=== PATIENT | female | born 1995 | race African-American/Black ===

== ENCOUNTER 2016-12-15 12:13 | Emergency (ER) | payer MEDICAID, OTHER ==
[~2016-12-15] VITALS: Ht 149.9 cm; Wt 63.5 kg
[~2016-12-15 12:13] MED LIST: ANTI-ITCH28 G1 TP; CIPROFLOXACIN500 M2 ORAL; IBUPROFEN600 MG ORAL; KEFLEX500 MG ORAL; NKM; PHENAZOPYRIDIN100 MG ORAL
[2016-12-15 12:40] LABS: APPEARANCE,URINE CLEAR; KETONES,URINE NEGATIVE (NEGATIVE); LEUKOCYTE ESTERASE ,URINE 1+ (NEGATIVE); NITRITE,URINE NEGATIVE (NEGATIVE); PH,URINE 7 (4.5-8.0); PROTEIN,URINE NEGATIVE (NEGATIVE); UROBILINOGEN,URINE NORMAL MG/DL (0.0-1.0)
[2016-12-15 12:57] LABS: BACTERIA,URINE FEW /HPF; RBC,URINE 0-2 /HPF (0 - 2); SQUAMOUS EPITHELIAL CELL,UR FEW /LPF (NONE/OCC)
[2016-12-15 13:01] VITALS: BP 122/82
[2016-12-15] MEDS ORDERED: METRONIDAZOLE500 MG ORAL (13:09)
[2016-12-15 13:19] VITALS: BP 122/82
--- NOTE | 2016-12-15 13:24 | Emergency Room Report ---
History of Present Illness General Chief Complaint: Back Pain-No Injury Source: Patient Present Illness HPI The patient is a 21-year-old female presenting for increased vaginal discharge, vaginal odor, and intermittent dysuria for the past 2 weeks. Patient states pain is a 6/10 dull ache to the vaginal region. She denies any itching. Pain does not radiate. She denies any other symptoms including nausea, vomiting, fever, chills, flank pain, hematuria Allergies: Coded Allergies: No Known Allergies (Unverified , 11/23/12) Patient History Past Medical History: see triage record Pertinent Family History: none Last Menstrual Period: 11/11/16 Now: No Reviewed Nursing Documentation: PMH: Agreed, PSxH: Agreed Nursing Documentation-PMH Past Medical History: No Stated History Review of Systems All Other Systems: negative except mentioned in HPI Physical Exam Vital Signs Date Time Temp Pulse Resp B/P Pulse Ox O2 Delivery O2 Flow Rate FiO2 12/15/16 12:20 98.2 69 18 122/82 100 Room Air Sp02 EP Interpretation: reviewed, normal General Appearance: no apparent distress, alert, GCS 15, non-toxic Head: normocephalic, atraumatic Eyes: bilateral eye PERRL, bilateral eye normal inspection ENT: hearing grossly normal, normal pharynx, no angioedema, normal voice Gastrointestinal: normal bowel sounds, non tender, soft, non-distended, no guarding, no rebound Rectal: deferred Musculoskeletal: back normal, gait/station normal, normal range of motion, non- tender, calf tenderness Neurologic: alert, oriented x3, responsive, motor strength/tone normal, sensory intact, speech normal Psychiatric: judgement/insight normal, memory normal, mood/affect normal, no suicidal/homicidal ideation Skin: normal color, no rash, warm/dry, well hydrated Medical Decision Making PA Attestation Dr. Sutton is my supervising physician. Patient management was discussed with my supervising physician Diagnostic Impression: Primary Impression: Bacterial vaginosis ER Course The patient is a 21-year-old female presenting for increased vaginal discharge, vaginal odor, and intermittent dysuria Differential diagnosis considered but not limited to: UTI, vaginitis, pyelonephritis, PE: Vitals WNL. NAD. Abdomen: Normal appearance. Non distended. No ecchymosis. Normal BS. Non TTP. No McBurney point tenderness. No guarding. No CVA tenderness Surgical scar from is well-healing Urinalysis is not consistent with UTI. She'll be treated for bacterial vaginosis. ER precautions are given Laboratory Tests Test 12/15/16 12:25 Urine Color Pale yellow Urine Appearance Clear Urine pH 7 (4.5-8.0) Urine Specific [place] 1.010 (1.005-1.035) Urine Protein Negative (NEGATIVE) Urine Glucose (UA) Negative (NEGATIVE) Urine Ketones Negative (NEGATIVE) Urine Occult Blood Negative (NEGATIVE) Urine Nitrite Negative (NEGATIVE) Urine Bilirubin Negative (NEGATIVE) Urine Urobilinogen Normal MG/DL (0.0-1.0) Urine Leukocyte Esterase 1+ (NEGATIVE) H Urine RBC 0-2 /HPF (0 - 2) Urine WBC 2-4 /HPF (0 - 2) Urine Squamous Epithelial Cells Few /LPF (NONE/OCC) Urine Bacteria Few /HPF (NONE) Urine HCG, Qualitative Negative Lab Results Impression No nitrites. Only few urine bacteria. Last Vital Signs Date Time Temp Pulse Resp B/P Pulse Ox O2 Delivery O2 Flow Rate FiO2 12/15/16 13:01 98.2 69 18 122/82 100 Room Air Status: improved Disposition: HOME, SELF-CARE Condition: Improved Scripts Metronidazole* (FLAGYL*) 500 Mg Tablet 500 MG ORAL BID, #14 TAB 0 Refills Prov: TAYLOR BERGER 12/15/16 Patient Instructions: Bacterial Vaginosis Additional Instructions: I discussed my findings with the patient. All questions and concerns have been answered. Treatment and medication compliance have been addressed. I advised the patient that they need to follow up with PMD in 3-5 days. Return to ED if symptoms worsen, new symptoms arise, or if needed for any reason. Patient verbalized understanding of discharge instructions. TAYLOR BERGER December 15, 2016 13:24
== END 2016-12-15 13:20 | disposition home or self-care (01) ==
LOC: EMR 13:05
DX: N76.0 Acute vaginitis (principal); B96.89 Other specified bacterial agents as the cause of diseases classified elsewhere
CPT/HCPCS: 81003; 81025; 99283

== ENCOUNTER 2017-05-09 21:25 | Emergency (ER) | payer OTHER ==
[~2017-05-09] VITALS: Ht 149.9 cm; Wt 63.5 kg
[~2017-05-09 21:25] MED LIST changes: +METRONIDAZOLE500 MG ORAL
[2017-05-09 21:52] VITALS: BP 122/77
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
[2017-05-09] MEDS ORDERED: IBUPROFEN600 MG ORAL (22:27)
[2017-05-09 22:31] VITALS: BP 122/77
--- NOTE | 2017-05-10 09:27 | Diagnostic Imaging Report ---
Indication: TRAUMA, status post fall Technique: Continuous helical CT scanning of the head was performed without intravenous contrast material. Axial and coronal 5 mm sections were generated. Radiation dose was minimized using automated exposure control Dose: Total Dose Length Product - DLP [address] Dose Index - CTDIvol(s) 70.38 mGy. Comparison: None Findings: The ventricular system is normal in size and configuration. There is no shift of midline structures. No abnormal extra-axial fluid collections are noted. There is no evidence of intracerebral bleeding. No other abnormal high or low density areas are noted within the brain. Intact calvarium. Visualized orbits and sinuses are unremarkable Impression: Normal CT scan of the head without contrast material. The CT scanner at [facility] is accredited by the [employer] and the scans are performed using protocols designed to limit radiation exposure to as low as reasonably achievable to attain images of sufficient resolution adequate for diagnostic evaluation.
== END 2017-05-09 22:32 | disposition home or self-care (01) ==
LOC: EMR 22:10
DX: S09.90XA Unspecified injury of head, initial encounter (principal); T16.1XXA Foreign body in right ear, initial encounter; X58.XXXA Exposure to other specified factors, initial encounter; Y93.9 Activity, unspecified; Y99.9 Unspecified external cause status; R51 Headache
CPT/HCPCS: 70450; 99283

== ENCOUNTER 2017-10-22 10:51 | Emergency (ER) | payer OTHER ==
[~2017-10-22] VITALS: Ht 149.9 cm; Wt 63.5 kg
[2017-10-22 11:24] VITALS: BP 121/70
[2017-10-22] MEDS ORDERED: Acetaminophen 500mg (ES) tab ORAL ONE (11:30)
[2017-10-22 12:37] LABS: APPEARANCE,URINE CLEAR; BILIRUBIN, URINE NEGATIVE (NEGATIVE); COLOR,URINE PALE YELLOW; GLUCOSE, URINE (UA) NEGATIVE (NEGATIVE); KETONES,URINE NEGATIVE (NEGATIVE); LEUKOCYTE ESTERASE ,URINE 2+ (NEGATIVE); NITRITE,URINE NEGATIVE (NEGATIVE); PH,URINE 7 (4.5-8.0); PROTEIN,URINE NEGATIVE (NEGATIVE); UROBILINOGEN,URINE NORMAL MG/DL (0.0-1.0)
[2017-10-22] MEDS ORDERED: metroNIDAZOLE 500mg tab ORAL ONE (13:45)
--- NOTE | 2017-10-22 13:51 | Emergency Room Report ---
History of Present Illness General Chief Complaint: Back Pain-No Injury Source: Patient Present Illness HPI Patient presents with lower back pain and dysuria. She also has a vaginal discharge which she states is white. The pain is 8/10, constant and an ache, not in her abdomen. No NVD or change in bowel movements. No fevers. No flank pain. No rashes. She has an implant which makes her periods irregular. She wants this removed. She has had vaginitis and UTIs in the past. Last was several months ago. Treated with antibiotics. She is in a stable relationship. No barrier methods used. Urinates most of the time after intercourse. No URI, chest pain, cough, sore throat, extremity pain. Stress with raising son. Allergies: Coded Allergies: No Known Allergies (Unverified , 11/23/12) Patient History Past Medical History: see triage record Social History: Denies: smoking Social History Narrative with son Last Menstrual Period: sep Reviewed Nursing Documentation: PMH: Agreed, PSxH: Agreed Nursing Documentation-PMH Past Medical History: No Stated History Review of Systems All Other Systems: negative except mentioned in HPI Physical Exam Vital Signs Date Time Temp Pulse Resp B/P (MAP) Pulse Ox O2 Delivery O2 Flow Rate FiO2 10/22/17 11:04 98.1 93 16 121/73 99 Room Air 98.1 Sp02 EP Interpretation: reviewed, normal General Appearance: well appearing, no apparent distress, GCS 15 Head: normocephalic Eyes: bilateral eye normal inspection, bilateral eye PERRL ENT: moist mucus membranes Neck: supple Respiratory: lungs clear, normal breath sounds Cardiovascular #1: regular rate, rhythm Cardiovascular #2: 2+ radial (R) Gastrointestinal: normal inspection, normal bowel sounds, non tender, no mass, non-distended Genitourinary: no CVA tenderness, adnexa normal, cervix normal, ext genitalia/ vag normal, os closed, uterus normal, other - yellowish/white d/c Musculoskeletal: back normal, gait/station normal, normal range of motion Neurologic: alert, oriented x3, grossly normal Psychiatric: mood/affect normal Skin: normal inspection, warm/dry Medical Decision Making Diagnostic Impression: Primary Impression: Bacterial vaginosis Additional Impression: UTI (urinary tract infection) Qualified Codes: N30.00 - Acute cystitis without hematuria ER Course Patient with back pain, dysuria and vaginal d/c. DDx: UTI, PID, vaginitis, back strain, pyelonephritis. Latter unlikely as no fever or CVA tenderness. Based on exam, PID excluded. Need UA and also wet mount. Treated with tylenol. UA with pyuria. WM with clue cells. Treated with macrobid and flagyl. Improved. Patient stable for outpatient observation and treatment. Laboratory Tests Test 10/22/17 11:10 Urine Color Pale yellow Urine Appearance Clear Urine pH 7 (4.5-8.0) Urine Specific [place] 1.010 (1.005-1.035) Urine Protein Negative (NEGATIVE) Urine Glucose (UA) Negative (NEGATIVE) Urine Ketones Negative (NEGATIVE) Urine Occult Blood Negative (NEGATIVE) Urine Nitrite Negative (NEGATIVE) Urine Bilirubin Negative (NEGATIVE) Urine Urobilinogen Normal MG/DL (0.0-1.0) Urine Leukocyte Esterase 2+ (NEGATIVE) H Urine RBC 0-2 /HPF (0 - 2) Urine WBC 10-15 /HPF (0 - 2) H Urine Squamous Epithelial Cells Few /LPF (NONE/OCC) Urine Bacteria Few /HPF (NONE) Urine HCG, Qualitative Negative Microbiology Date/Time Source Procedure Growth Status 10/22/17 12:30 Vaginal Wet Prep - Final Complete Last Vital Signs Date Time Temp Pulse Resp B/P (MAP) Pulse Ox O2 Delivery O2 Flow Rate FiO2 10/22/17 14:15 98.3 77 16 121/70 98 Room Air 208.9 Status: improved Disposition: HOME, SELF-CARE Condition: Improved Scripts Acetaminophen (Tylenol) 325 Mg Tablet 650 MG ORAL Q6H Y for Prn Pain/Headache/Temp > 101, #30 TAB 0 Refills Prov: Дмитрий Cummins M.D. 10/22/17 Nitrofurantoin Monohyd/M-Cryst* (MACROBID 100 MG*) 100 Mg Capsule 100 MG ORAL EVERY 12 HOURS, #14 CAP Prov: Дмитрий Cummins M.D. 10/22/17 Ibuprofen* (MOTRIN*) 600 Mg Tablet 600 MG ORAL Q6H Y for For Pain, #20 TAB Prov: Дмитрий Cummins M.D. 10/22/17 Metronidazole* (FLAGYL*) 500 Mg Tablet 500 MG ORAL TID, #21 TAB Prov: Дмитрий Cummins M.D. 10/22/17 Referrals: [facility],REFERRING (PCP) Дмитрий Cummins M.D. Oct 22, 2017 13:51
[2017-10-22] MEDS ORDERED: METRONIDAZOLE500 MG ORAL (13:55)
[2017-10-22] MEDS ORDERED: NITROFURANTOIN100 M2 ORAL (13:55)
[2017-10-22] MEDS ORDERED: IBUPROFEN600 MG ORAL (13:55)
[2017-10-22] MEDS ORDERED: TYLENOL325 MG ORAL (13:55)
[2017-10-22 14:15] VITALS: BP_SYST 103; BP_SYST 121; BP_DIAS 65; BP_DIAS 70
[2017-10-25] MEDS ORDERED: AUGMENTIN 875-1 EAC1 ORAL (07:03)
== END 2017-10-22 14:15 | disposition home or self-care (01) ==
LOC: EMR 11:39
DX: N30.00 Acute cystitis without hematuria (principal); N76.0 Acute vaginitis
CPT/HCPCS: 81003; 81025; 87086; 87181; 87210; 99284

== ENCOUNTER 2017-12-14 08:48 | Emergency (ER) | payer OTHER ==
[~2017-12-14] VITALS: Ht 149.9 cm; Wt 63.5 kg
[~2017-12-14 08:48] MED LIST changes: +AUGMENTIN 875-1 EAC1 ORAL; +NITROFURANTOIN100 M2 ORAL; +TYLENOL325 MG ORAL
[2017-12-14] MEDS ORDERED: NKM (08:56)
[2017-12-14] MEDS ORDERED: Norco 5mg/325mg tab ORAL ONE (09:00)
--- NOTE | 2017-12-14 09:02 | Emergency Room Report ---
History of Present Illness General Chief Complaint: Pain Source: Patient Present Illness HPI Patient presents emergency department today complaining of right wrist pain. Patient states that she develops mild right wrist pain yesterday and then progressively became worse to the point now it's worse when she tries to move it. She denies any trauma chest pain shortness of breath. States that she did not have any recent injury. Denies any heavy lifting or repetitive movements. The pain is concentrated to the risks and nonradiating. The pain is worse with movement. There is some mild swelling around the area of the wrist as well. Patient denies any other involvement of any other joints. Patient denies any vaginal discharge dysuria urinary frequency or prior episode.No other modifying factors. No other associated signs and symptoms. No other complaints were noted. Allergies: Coded Allergies: No Known Allergies (Unverified , 11/23/12) Patient History Past Medical History: none Past Surgical History: none Pertinent Family History: none Social History: Denies: smoking, alcohol use, drug use Last Menstrual Period: 12/06/17 Reviewed Nursing Documentation: PMH: Agreed; PSxH: Agreed Nursing Documentation-PMH Past Medical History: No Stated History Review of Systems All Other Systems: negative except mentioned in HPI Physical Exam Vital Signs Date Time Temp Pulse Resp B/P (MAP) Pulse Ox O2 Delivery O2 Flow Rate FiO2 12/14/17 08:54 97.5 84 16 114/74 100 Room Air 97.5 Sp02 EP Interpretation: reviewed, normal General Appearance: normal inspection, well appearing, no apparent distress, alert Head: atraumatic Eyes: bilateral eye normal inspection ENT: normal ENT inspection, hearing grossly normal, normal voice Neck: normal inspection, full range of motion, supple, no bony tend Respiratory: normal inspection, lungs clear, normal breath sounds, no respiratory distress, no retraction, no wheezing Cardiovascular #1: regular rate, rhythm, no edema Gastrointestinal: normal inspection, normal bowel sounds, non tender, soft, no guarding, no hernia Genitourinary: no CVA tenderness Musculoskeletal: decreased range of motion - Right wrist, swelling - Right wrist mild, tender - Right wrist Neurologic: normal inspection, alert, responsive, speech normal Psychiatric: normal inspection, judgement/insight normal, mood/affect normal Skin: normal inspection, normal color, no rash Procedures Splinting Splinting : Consent: Verbal Location: Right wrist Pre-Made Type: velcro Splint: wrist Pre-Proc Neuro Vasc Exam: normal Post-Proc Neuro Vasc Exam: normal Patient Tolerated: Well Complications: None Medical Decision Making Diagnostic Impression: Primary Impression: Gout attack Additional Impression: Wrist pain ER Course Patient presents emergency department today complaining of right wrist pain. Differential considerations cofactors dislocation versus strain versus arthritis versus gout. Because patient's presentation x-rays are indicated. X- rays were negative. I felt the symptoms are likely consistent with gallops or strain. Patient was given pain medications and a Velcro a splint.Patient is advised to follow up with primary doctor in 2-3 days and return the emergency room for any worsening symptoms and as needed. Other X-Ray Diagnostic Results Other X-Ray Diagnostic Results : X-Ray ordered: Right wrist x-ray # of Views/Limited Vs Complete: 3 View Indication: Pain EP Interpretation: Yes Interpretation: no dislocation, no soft tissue swelling, no fractures Impression: No acute disease Electronically Signed by: Electronically signed by Nia Corbett MD Last Vital Signs Date Time Temp Pulse Resp B/P (MAP) Pulse Ox O2 Delivery O2 Flow Rate FiO2 12/14/17 08:54 97.5 84 16 114/74 100 Room Air 97.5 Status: improved Disposition: HOME, SELF-CARE Condition: Stable Scripts Indomethacin (Indomethacin) 50 Mg Capsule 25 MG ORAL Q8H for pain, #15 CAP 0 Refills Prov: NIA CORBETT M.D. 12/14/17 Hydrocodone Bit/Acetaminophen 5-325* (NORCO 5-325*) 1 Each Tablet 1 TAB ORAL Q6H PRN for For Pain, #20 TAB 0 Refills Prov: NIA CORBETT M.D. 12/14/17 NIA CORBETT M.D. December 14, 2017 09:02
[2017-12-14] MEDS ORDERED: INDOCIN25 MG ORAL (10:15)
[2017-12-14] MEDS ORDERED: NORCO 5-325 TA1 EACH ORAL (10:15)
[2017-12-14 10:20] VITALS: BP 99/68
--- NOTE | 2017-12-14 11:03 | Diagnostic Imaging Report ---
Indication: Pain Technique: XRAY Wrist Complete R Comparison: None Findings: There is no evidence of acute fracture or dislocation. Anatomic alignment and joint spaces are preserved. No focal soft tissue defect is appreciated. No radiopaque foreign body seen. Impression: No evidence of acute bony articular abnormality.
== END 2017-12-14 10:20 | disposition home or self-care (01) ==
LOC: EMR 09:11
DX: M10.9 Gout, unspecified (principal)
CPT/HCPCS: 29125; 99284

== ENCOUNTER 2018-02-14 09:52 | Emergency (ER) | payer OTHER ==
[~2018-02-14] VITALS: Ht 152.4 cm; Wt 64.4 kg
[~2018-02-14 09:52] MED LIST changes: +INDOCIN25 MG ORAL; +NORCO 5-325 TA1 EACH ORAL
[2018-02-14] MEDS ORDERED: Sodium Chloride 500ML 500 ML IV ONE (10:20)
[2018-02-14 10:30] VITALS: BP 114/75
[2018-02-14] MEDS ORDERED: Mylanta II UD 30ml ORAL ONE (10:30)
[2018-02-14] MEDS ORDERED: Dicyclomine HCl 10mg/5ml oral soln ORAL ONE (10:30)
[2018-02-14] MEDS ORDERED: Lidocaine 2% Visc 15ml soln ORAL ONE (10:30)
[2018-02-14 10:50] LABS: BASOPHILS % (AUTO) 0.9 % (0.0-2.0); EOSINOPHILS % (AUTO) 0.2 % (0.0-3.0); HEMATOCRIT 42.2 % (37.0-47.0); HEMOGLOBIN 14.1 G/DL (12.0-16.0); LYMPHOCYTES % (AUTO) 18.9 % (20.0-45.0); MEAN CORPUSCULAR VOLUME 90 FL (80-99); MONOCYTES % (AUTO) 4.3 % (1.0-10.0); NEUTROPHILS % (AUTO) 75.8 % (45.0-75.0); PLATELET COUNT 272 K/UL (150-450); RED BLOOD COUNT 4.71 M/UL (4.20-5.40); RED CELL DISTRIBUTION WIDTH 11.4 % (11.6-14.8); WHITE BLOOD COUNT 14.1 K/UL (4.8-10.8)
[2018-02-14 10:51] LABS: APPEARANCE,URINE SLIGHTLY CLOUDY; BILIRUBIN, URINE NEGATIVE (NEGATIVE); GLUCOSE, URINE (UA) NEGATIVE (NEGATIVE); KETONES,URINE NEGATIVE (NEGATIVE); LEUKOCYTE ESTERASE ,URINE 1+ (NEGATIVE); NITRITE,URINE NEGATIVE (NEGATIVE); PH,URINE 6 (4.5-8.0); PROTEIN,URINE 1+ (NEGATIVE); UROBILINOGEN,URINE 1 MG/DL (0.0-1.0)
[2018-02-14 10:56] LABS: COLOR,URINE YELLOW
[2018-02-14 10:58] LABS: ANION GAP 8 mmol/L (5-15); BLOOD UREA NITROGEN 9 mg/dL (7-18); CALCIUM 9.5 MG/DL (8.5-10.1); CARBON DIOXIDE 27 MMOL/L (21-32); CHLORIDE 103 MMOL/L (98-107); CREATININE 0.8 MG/DL (0.55-1.30); POTASSIUM 3.6 MMOL/L (3.5-5.1); SODIUM 138 MMOL/L (136-145)
[2018-02-14 11:03] LABS: ALANINE AMINOTRANSFERASE 21 U/L (12-78); ALBUMIN 3.8 G/DL (3.4-5.0); ALBUMIN/GLOBULIN RATIO 0.8 (1.0-2.7); ALKALINE PHOSPHATASE 86 U/L (46-116); ASPARTATE AMINO TRANSFERASE 16 U/L (15-37); BILIRUBIN,TOTAL 0.2 MG/DL (0.2-1.0)
[2018-02-14] MEDS ORDERED: cefTRIAXone 1 GM in NS 55 ML IVPB ONE (11:15)
[2018-02-14] MEDS ORDERED: CEPHALEXIN500 MG ORAL (12:32)
[2018-02-14] MEDS ORDERED: RANITIDINE HCL150 MG ORAL (12:32)
[2018-02-14 13:00] VITALS: BP 114/75
--- NOTE | 2018-02-14 14:21 | Emergency Room Report ---
History of Present Illness General Chief Complaint: Abdominal Pain Source: Patient Present Illness HPI 22-year-old female presents ED complaining of abdominal pain. Started last night. Patient is epigastric, sharp, 8 out of 10, nonradiating. Notes nausea, denies vomiting. Denies chest pain or shortness of breath. Denies fevers or chills. No other aggravating relieving factors. Denies any other associated symptoms Allergies: Coded Allergies: No Known Allergies (Unverified , 11/23/12) Patient History Past Medical History: none Past Surgical History: none Pertinent Family History: none Social History: Denies: smoking, alcohol use, drug use Last Menstrual Period: 01/29/18 Now: No Immunizations: UTD Reviewed Nursing Documentation: PMH: Agreed; PSxH: Agreed Nursing Documentation-PMH Past Medical History: No Stated History Review of Systems All Other Systems: negative except mentioned in HPI Physical Exam Vital Signs Date Time Temp Pulse Resp B/P (MAP) Pulse Ox O2 Delivery O2 Flow Rate FiO2 02/14/18 10:09 98.5 99 16 114/75 97 Room Air 98.4 Sp02 EP Interpretation: reviewed, normal General Appearance: no apparent distress, alert, GCS 15, non-toxic Head: normocephalic, atraumatic Eyes: bilateral eye normal inspection, bilateral eye PERRL ENT: hearing grossly normal, normal pharynx, no angioedema, normal voice Neck: full range of motion, supple/symm/no masses Respiratory: chest non-tender, lungs clear, normal breath sounds, speaking full sentences Cardiovascular #1: regular rate, rhythm, no edema Cardiovascular #2: 2+ carotid (R), 2+ carotid (L), 2+ radial (R), 2+ radial (L) , 2+ dorsalis pedis (R), 2+ dorsalis pedis (L) Gastrointestinal: normal bowel sounds, soft, non-distended, no guarding, no rebound, tenderness - epigastric Rectal: deferred Genitourinary: normal inspection, no CVA tenderness Musculoskeletal: back normal, gait/station normal, normal range of motion, non- tender Neurologic: alert, oriented x3, responsive, motor strength/tone normal, sensory intact, speech normal Psychiatric: judgement/insight normal, memory normal, mood/affect normal, no suicidal/homicidal ideation Reflexes: 3+ bicep (R), 3+ bicep (L), 3+ tricep (R), 3+ tricep (L), 3+ knee (R) , 3+ knee (L) Skin: normal color, no rash, warm/dry, well hydrated Lymphatic: no adenopathy Medical Decision Making Diagnostic Impression: Primary Impression: Gastritis Qualified Codes: K29.00 - Acute gastritis without bleeding Additional Impression: UTI ER Course Hospital Course 22-year-old F presents to ED with epigastric pain with nausea differential diagnosis: gastritis, SBO, cholecystits Clinical course Patient placed on stretcher. On ekg monitor. After initial history and physical I ordered labs, IV fluids, gi cocktail, pepcid Labs - noted leukocytosis, no electrolyte abnormalities, LFTs normal, UA + bacteria Given IV rocephin Upon reassessment, patient states pain has improved. findings consistent with gastritis, UTI I feel this is a highly complex case requiring extensive working including EKG/ Rhythm strip, Xray/CT/US, Blood/urine lab work, repeat exams while in ED, and administration of strong opiates/narcotics for pain control, admission to hospital or close patient follow up. Diagnosis - gastritis, UTI Stable and discharged to home with prescriptions for Zantac, keflex. Followup with PMD. Return to ED if symptoms recur or worsen Labs Test 02/14/18 10:19 02/14/18 10:30 Urine Color Yellow Urine Appearance Slightly cloudy Urine pH 6 (4.5-8.0) Urine Specific [place] 1.020 (1.005-1.035) Urine Protein 1+ (NEGATIVE) Urine Glucose (UA) Negative (NEGATIVE) Urine Ketones Negative (NEGATIVE) Urine Occult Blood 1+ (NEGATIVE) Urine Nitrite Negative (NEGATIVE) Urine Bilirubin Negative (NEGATIVE) Urine Urobilinogen 1 MG/DL (0.0-1.0) Urine Leukocyte Esterase 1+ (NEGATIVE) Urine RBC 2-4 /HPF (0 - 2) Urine WBC 5-10 /HPF (0 - 2) Urine Squamous Epithelial Cells Many /LPF (NONE/OCC) Urine Bacteria Moderate /HPF (NONE) Urine HCG, Qualitative Negative (NEGATIVE) White Blood Count 14.1 K/UL (4.8-10.8) Red Blood Count 4.71 M/UL (4.20-5.40) Hemoglobin 14.1 G/DL (12.0-16.0) Hematocrit 42.2 % (37.0-47.0) Mean Corpuscular Volume 90 FL (80-99) Mean Corpuscular Hemoglobin 29.9 PG (27.0-31.0) Mean Corpuscular Hemoglobin Concent 33.4 G/DL (32.0-36.0) Red Cell Distribution Width 11.4 % (11.6-14.8) Platelet Count 272 K/UL (150-450) Mean Platelet Volume 7.2 FL (6.5-10.1) Neutrophils (%) (Auto) 75.8 % (45.0-75.0) Lymphocytes (%) (Auto) 18.9 % (20.0-45.0) Monocytes (%) (Auto) 4.3 % (1.0-10.0) Eosinophils (%) (Auto) 0.2 % (0.0-3.0) Basophils (%) (Auto) 0.9 % (0.0-2.0) Sodium Level 138 MMOL/L (136-145) Potassium Level 3.6 MMOL/L (3.5-5.1) Chloride Level 103 MMOL/L (98-107) Carbon Dioxide Level 27 MMOL/L (21-32) Anion Gap 8 mmol/L (5-15) Blood Urea Nitrogen 9 mg/dL (7-18) Creatinine 0.8 MG/DL (0.55-1.30) Estimat Glomerular Filtration Rate > 60 mL/min (>60) Glucose Level 91 MG/DL (74-106) Calcium Level 9.5 MG/DL (8.5-10.1) Total Bilirubin 0.2 MG/DL (0.2-1.0) Aspartate Amino Transf (AST/SGOT) 16 U/L (15-37) Alanine Aminotransferase (ALT/SGPT) 21 U/L (12-78) Alkaline Phosphatase 86 U/L (46-116) Total Protein 8.8 G/DL (6.4-8.2) Albumin 3.8 G/DL (3.4-5.0) Globulin 5.0 g/dL Albumin/Globulin Ratio 0.8 (1.0-2.7) Lipase 136 U/L (73-393) Last Vital Signs Date Time Temp Pulse Resp B/P (MAP) Pulse Ox O2 Delivery O2 Flow Rate FiO2 7/5/18 10:30 98.4 16 114/75 97 Room Air 98.4 02/14/18 10:09 99 Status: improved Disposition: HOME, SELF-CARE Condition: Stable Scripts Ranitidine Hcl* (ZANTAC*) 150 Mg Tablet 150 MG ORAL TWICE A DAY, #30 TAB Prov: Dre Marvin MD 02/14/18 Cephalexin* (KEFLEX*) 500 Mg Capsule 500 MG ORAL EVERY 6 HOURS, #28 CAP Prov: Dre Marvin MD 02/14/18 Patient Instructions: Dysuria, Gastritis, Adult, [id number] Dre Marvin MD Feb 14, 2018 14:21
== END 2018-02-14 13:00 | disposition home or self-care (01) ==
LOC: EMR 10:40
DX: K29.70 Gastritis, unspecified, without bleeding (principal); N39.0 Urinary tract infection, site not specified
CPT/HCPCS: 36415; 80053; 81003; 81025; 83690; 85025; 87086; 87181; 96365; 96375; 99284; J0696; J7040; S0028; 96360; 96374

== ENCOUNTER 2018-04-03 05:34 | Emergency (ER) | payer OTHER ==
[~2018-04-03] VITALS: Ht 152.4 cm; Wt 61.2 kg
[~2018-04-03 05:34] MED LIST changes: +CEPHALEXIN500 MG ORAL; +RANITIDINE HCL150 MG ORAL
[2018-04-03 05:50] VITALS: BP 110/66
[2018-04-03] MEDS ORDERED: IBUPROFEN600 MG ORAL (05:50)
--- NOTE | 2018-04-03 05:51 | Emergency Room Report ---
History of Present Illness General Chief Complaint: Upper Extremity Injury Source: Patient Present Illness HPI Is a 23-year-old female who is right-hand dominant. She is a student and has repetitive motion of her wrist. She presents with chief complaint of right wrist pain underneath the thumb. Onset for the last few days. Worse with motion. Worse with palpation. No fever chills but no trauma. Similar symptom in the past. Denies any trauma. Pain is 8 out of 10. Allergies: Coded Allergies: No Known Allergies (Unverified , 11/23/12) Patient History Past Medical History: none, see triage record, old chart reviewed Past Surgical History: none Pertinent Family History: none Social History: Denies: smoking Last Menstrual Period: mar Now: No Immunizations: other Reviewed Nursing Documentation: PMH: Agreed; PSxH: Agreed Nursing Documentation-PMH Past Medical History: No Stated History Review of Systems Eye: Denies: eye pain, blurred vision ENT: Denies: ear pain, nose congestion, throat swelling Respiratory: Denies: cough, shortness of breath Cardiovascular: Denies: chest pain, palpitations Gastrointestinal: Denies: abdominal pain, diarrhea, nausea, vomiting Musculoskeletal: Reports: joint pain; Denies: back pain Skin: Denies: rash Neurological: Denies: headache, numbness Endocrine: Denies: increased thirst, increased urine Hematologic/Lymphatic: Denies: easy bruising All Other Systems: negative except mentioned in HPI Physical Exam Vital Signs Date Time Temp Pulse Resp B/P (MAP) Pulse Ox O2 Delivery O2 Flow Rate FiO2 04/03/18 05:37 97.9 85 18 110/66 100 Room Air 97.9 vitals normal Sp02 EP Interpretation: reviewed, normal General Appearance: well appearing, no apparent distress, alert Head: normocephalic, atraumatic Eyes: bilateral eye PERRL, bilateral eye EOMI ENT: hearing grossly normal, normal pharynx Neck: full range of motion, supple, no meningismus Respiratory: chest non-tender, lungs clear, normal breath sounds Cardiovascular #1: regular rate, rhythm, no murmur Gastrointestinal: normal bowel sounds, non tender, no mass, no organomegaly, no bruit, non-distended Musculoskeletal: back normal, gait/station normal, normal range of motion, tender - At the base of the thumb near the radial styloid. No warmth or edema. No redness. Pulses normal. Neurologic: alert, oriented x3 Psychiatric: mood/affect normal Skin: warm/dry Procedures Splinting Splinting : Consent: Verbal Location: right thumb Pre-Made Type: velcro Splint: thumb spica Pre-Proc Neuro Vasc Exam: normal Post-Proc Neuro Vasc Exam: normal Patient Tolerated: Well Complications: None Medical Decision Making Diagnostic Impression: Primary Impression: Tendinitis, de Quervain's ER Course Patient presents with right wrist pain. This consistent with de Quervain's tendinitis. No evidence of septic joint. No evidence of gout. We'll discharge home with anti-inflammatory. We'll also put her in a thumb spica splint. Last Vital Signs Date Time Temp Pulse Resp B/P (MAP) Pulse Ox O2 Delivery O2 Flow Rate FiO2 04/03/18 05:37 97.9 85 18 110/66 100 Room Air 97.9 Status: unchanged Disposition: HOME, SELF-CARE Condition: Stable Scripts Ibuprofen* (MOTRIN*) 600 Mg Tablet 600 MG ORAL THREE TIMES A DAY, #30 TAB 0 Refills Prov: KATHY BREWSTER M.D. 04/03/18 Additional Instructions: Rest. Elevate wrist. Ice pack to the area. Decrease activity. Return for increasing pain or any concern. Follow-up your doctor in a week. KATHY BREWSTER M.D. Apr 03, 2018 05:51
[2018-04-03 06:03] VITALS: BP 110/66
== END 2018-04-03 06:05 | disposition home or self-care (01) ==
LOC: EMR 05:48
DX: M65.4 Radial styloid tenosynovitis [de Quervain] (principal)
CPT/HCPCS: 29130; 99283

== ENCOUNTER 2018-09-12 13:26 | Emergency (ER) | payer OTHER ==
[~2018-09-12] VITALS: Ht 152.4 cm; Wt 63.5 kg
[~2018-09-12 13:26] MED LIST changes: +TYLENOL EXTRA500 MG ORAL
--- NOTE | 2018-09-12 13:49 | Emergency Room Report ---
History of Present Illness General Chief Complaint: Female Urogenital Problems Source: Patient Present Illness HPI 23-year-old female presents to the emergency department complaining of 7 out of 10 in severity dysuria, urinary frequency, urgency and low back pain 3 days. Patient reports her symptoms have been progressive. Patient reports frequent UTIs. Patient denies suspicion for she denies lower abdominal pain/ tenderness, nausea, vomiting, fevers or chills. Denies rashes or external genital lesions. Denies aggravating or relieving factors. Allergies: Coded Allergies: No Known Allergies (Unverified , 11/23/12) Patient History Past Medical History: see triage record Past Surgical History: none Pertinent Family History: none Now: No Reviewed Nursing Documentation: PMH: Agreed; PSxH: Agreed Nursing Documentation-PMH Past Medical History: No Stated History Review of Systems All Other Systems: negative except mentioned in HPI Physical Exam Vital Signs Date Time Temp Pulse Resp B/P (MAP) Pulse Ox O2 Delivery O2 Flow Rate FiO2 09/12/18 13:40 98.4 73 19 107/61 99 Room Air Sp02 EP Interpretation: reviewed, normal General Appearance: no apparent distress, alert, GCS 15, non-toxic Head: normocephalic, atraumatic Eyes: bilateral eye normal inspection, bilateral eye PERRL ENT: hearing grossly normal, normal voice Neck: full range of motion Respiratory: chest non-tender, lungs clear, normal breath sounds, speaking full sentences Cardiovascular #1: regular rate, rhythm Gastrointestinal: normal bowel sounds, non tender, soft, non-distended, no guarding Rectal: deferred Genitourinary: normal inspection, no CVA tenderness Musculoskeletal: back normal, gait/station normal, normal range of motion, non- tender Neurologic: alert, oriented x3, responsive, motor strength/tone normal, sensory intact, normal gait, speech normal, grossly normal Psychiatric: judgement/insight normal Skin: normal color, no rash, warm/dry, well hydrated Medical Decision Making PA Attestation Dr. Colbert is my supervising physician whom pt. management has been discussed with. Diagnostic Impression: Primary Impression: UTI (urinary tract infection) Qualified Codes: N30.01 - Acute cystitis with hematuria ER Course 23-year-old female presents to the emergency department complaining of 7 out of 10 in severity dysuria, urinary frequency, urgency and low back pain 3 days. Patient reports her symptoms have been progressive. Patient reports frequent UTIs. Patient denies suspicion for she denies lower abdominal pain/ tenderness, nausea, vomiting, fevers or chills. Denies rashes or external genital lesions. Denies aggravating or relieving factors. Ddx considered but are not limited to UTi , Pyelo, STI, Stone, Cystitis Vital signs: are WNL, pt. is afebrile H&PE are most consistent with UTI ORDERS: - UA labs are attached --Positive for UTI -Urine HCG: Negative ED INTERVENTIONS: -Pyridium PO DISCHARGE: At this time pt. is stable for d/c to home. Will provide printed patient care instructions, and any necessary prescriptions. Care plan and follow up instructions have been discussed with the patient prior to discharge. Labs Test 09/12/18 13:35 Urine Color Pale yellow Urine Appearance Slightly cloudy Urine pH 6 (4.5-8.0) Urine Specific [place] 1.020 (1.005-1.035) Urine Protein 1+ (NEGATIVE) Urine Glucose (UA) Negative (NEGATIVE) Urine Ketones Negative (NEGATIVE) Urine Blood 1+ (NEGATIVE) Urine Nitrite Positive (NEGATIVE) Urine Bilirubin Negative (NEGATIVE) Urine Urobilinogen Normal MG/DL (0.0-1.0) Urine Leukocyte Esterase 3+ (NEGATIVE) Urine RBC 0-2 /HPF (0 - 2) Urine WBC 5-10 /HPF (0 - 2) Urine Squamous Epithelial Cells Few /LPF (NONE/OCC) Urine Bacteria Many /HPF (NONE) Urine HCG, Qualitative Negative (NEGATIVE) Last Vital Signs Date Time Temp Pulse Resp B/P (MAP) Pulse Ox O2 Delivery O2 Flow Rate FiO2 09/12/18 13:40 98.4 73 19 107/61 99 Room Air Disposition: HOME, SELF-CARE Condition: Stable Scripts Nitrofurantoin Monohyd/M-Cryst* (MACROBID 100 MG*) 100 Mg Capsule 100 MG ORAL EVERY 12 HOURS for 5 Days, #10 CAP Prov: Bhavna Mcbride 09/12/18 Patient Instructions: Urinary Tract Infection Bhavna Mcbride Sep 12, 2018 13:49
[2018-09-12] MEDS ORDERED: Phenazopyridine 200mg tab ORAL ONE (14:00)
--- NOTE | 2018-09-12 14:00 | NUR ---
ED Nurse Note:urine sent to labs
[2018-09-12 14:09] LABS: APPEARANCE,URINE SLIGHTLY CLOUDY; BILIRUBIN, URINE NEGATIVE (NEGATIVE); COLOR,URINE PALE YELLOW; GLUCOSE, URINE (UA) NEGATIVE (NEGATIVE); KETONES,URINE NEGATIVE (NEGATIVE); LEUKOCYTE ESTERASE ,URINE 3+ (NEGATIVE); NITRITE,URINE POSITIVE (NEGATIVE); PH,URINE 6 (4.5-8.0); PROTEIN,URINE 1+ (NEGATIVE); UROBILINOGEN,URINE NORMAL MG/DL (0.0-1.0)
[2018-09-12 14:10] VITALS: BP 107/61
[2018-09-12] MEDS ORDERED: NITROFURANTOIN100 M2 ORAL (14:32)
[2018-09-12 14:45] VITALS: BP 111/62
--- NOTE | 2018-09-12 14:45 | NUR ---
ED Nurse Note: Patient is being discharged from ED alert and oriented x4, ambulatory with a steady gait, VSS. patient acknowledged the need to follow up with a week if symptoms dont improve, ID band removed and prescriptions given to patient
== END 2018-09-12 14:49 | disposition home or self-care (01) ==
LOC: EMR 13:45
DX: N39.0 Urinary tract infection, site not specified (principal)
CPT/HCPCS: 81003; 81025; 87086; 87181; 99283

== ENCOUNTER 2018-09-17 03:31 | Emergency (ER) | payer OTHER ==
[~2018-09-17] VITALS: Ht 152.4 cm; Wt 63.5 kg
[2018-09-17] MEDS ORDERED: Ketorolac 60mg Inj IM ONE (04:00)
--- NOTE | 2018-09-17 04:00 | NUR ---
ED Nurse Note: RECIEVED PT ON [place], FROM HOME, AWAKE, ALERT AND ORIENTED X 4, PT HERE WITH C/O SEVERRE, SUDDEN RIGHT LATERAL PAIN AT 10/10, PT IS CURRENTLY BEING TREATED FOR UTI, DAY 4 OF MACROBID, STATES DYSURIA IS BETTER BUT WAS AWAKENED WITH SEVERE PAIN, PT IS CRYING AND GUARDING SITE, ALSO C/O NAUSEA, NO VOMITING, FEVERS, INJURY OR ANY OTHER COMPLAITNS OR DISCOMFORTS, URINE SAMPLE COLLECTED AND SENT, WILL RESUME CARE ORDERED AND CONTINUE TO CLOSELY MONITOR.
--- NOTE | 2018-09-17 04:04 | Emergency Room Report ---
History of Present Illness General Chief Complaint: Lower Back Pain or Injury Source: Patient Present Illness HPI Is a 23-year-old female with no past medical history. She presents with chief complaint of low back pain. Onset was around midnight. Pain is localized to the right lower back. No radiation. Worse with movement. Pain is 9 out of 10. She has a history of back pain before but never this severe. No incontinence of bowel or urine. No numbness. No fever. She was here 4 days ago for UTI. She was prescribed Macrobid. Urine culture grew out Escherichia coli which is pansensitive. Allergies: Coded Allergies: No Known Allergies (Unverified , 11/23/12) Patient History Past Medical History: see triage record, old chart reviewed Past Surgical History: none Pertinent Family History: none Social History: Denies: smoking Last Menstrual Period: aug Now: No : 2 Para: 1 Immunizations: other Reviewed Nursing Documentation: PMH: Agreed; PSxH: Agreed Nursing Documentation-PMH Past Medical History: No Stated History Review of Systems Eye: Denies: eye pain, blurred vision ENT: Denies: ear pain, nose congestion, throat swelling Respiratory: Denies: cough, shortness of breath Cardiovascular: Denies: chest pain, palpitations Gastrointestinal: Denies: abdominal pain, diarrhea, nausea, vomiting Musculoskeletal: Reports: back pain; Denies: joint pain Skin: Denies: rash Neurological: Denies: headache, numbness Endocrine: Denies: increased thirst, increased urine Hematologic/Lymphatic: Denies: easy bruising All Other Systems: negative except mentioned in HPI Physical Exam Vital Signs Date Time Temp Pulse Resp B/P (MAP) Pulse Ox O2 Delivery O2 Flow Rate FiO2 09/17/18 03:34 98.2 86 14 128/94 99 Room Air vitals normal Sp02 EP Interpretation: reviewed, normal General Appearance: well appearing, no apparent distress, alert Head: normocephalic, atraumatic Eyes: bilateral eye PERRL, bilateral eye EOMI ENT: hearing grossly normal, normal pharynx Neck: full range of motion, supple, no meningismus Respiratory: chest non-tender, lungs clear, normal breath sounds Cardiovascular #1: regular rate, rhythm, no murmur Gastrointestinal: normal bowel sounds, non tender, no mass, no organomegaly, no bruit, non-distended Musculoskeletal: back normal, gait/station normal, normal range of motion Psychiatric: mood/affect normal Skin: warm/dry Medical Decision Making Diagnostic Impression: Primary Impression: UTI (urinary tract infection) Qualified Codes: N30.00 - Acute cystitis without hematuria ER Course Patient presents with right flank pain. She still has evidence of UTI. This may be an ascending UTI versus early pyelonephritis. She grew out Escherichia coli that is pansensitive. We'll switch antibiotic class. A dose of Levaquin given here. Pain is better controlled. We'll discharge home. Last Vital Signs Date Time Temp Pulse Resp B/P (MAP) Pulse Ox O2 Delivery O2 Flow Rate FiO2 09/17/18 03:34 98.2 86 14 128/94 99 Room Air Status: improved Disposition: HOME, SELF-CARE Condition: Stable Scripts Levofloxacin (LEVOFLOXACIN*) 500 Mg Tablet 500 MG ORAL DAILY, #6 TAB Prov: Favio Anaya MD 09/17/18 Hydrocodone/Acetaminophen 5-325* (HYDROCODONE/ACETAMINOPHEN 5-325*) 1 Each Tablet 1 TAB ORAL Q6H PRN for For Pain, #15 TAB 0 Refills Prov: Favio Anaya MD 09/17/18 Referrals: [facility],REFERRING (PCP) Patient Instructions: Back Pain, Adult Additional Instructions: Stop Macrobid. Take new antibiotics. Follow-up with your doctor in 2-3 days for recheck. Return if worse. Favio Anaya MD Sep 17, 2018 04:04
[2018-09-17 04:39] LABS: BILIRUBIN, URINE NEGATIVE (NEGATIVE); GLUCOSE, URINE (UA) NEGATIVE (NEGATIVE); KETONES,URINE NEGATIVE (NEGATIVE); LEUKOCYTE ESTERASE ,URINE 2+ (NEGATIVE); NITRITE,URINE NEGATIVE (NEGATIVE); PH,URINE 6 (4.5-8.0); PROTEIN,URINE 2+ (NEGATIVE); UROBILINOGEN,URINE NORMAL MG/DL (0.0-1.0)
[2018-09-17 04:47] LABS: APPEARANCE,URINE CLOUDY; COLOR,URINE YELLOW
[2018-09-17] MEDS ORDERED: Levofloxacin 500mg tab ORAL ONE (05:00)
[2018-09-17] MEDS ORDERED: HYDROCODON-ACE1 EA15 ORAL (05:01)
[2018-09-17] MEDS ORDERED: LEVOFLOXACIN500 MG ORAL (05:01)
[2018-09-17 05:20] VITALS: BP 122/81
--- NOTE | 2018-09-17 05:30 | NUR ---
ED Nurse Note: pain meds given effective, pt staes pain at 2/10, nausea resolved, no s/s of adverse reaction noted from oral antibiotic, pt tolerated well, pt is being d/c to home, given f/u info, after care instructions and re-verbalizes proper and new medication administration and importance of f/u, pt is ambulatory, armband removed, nad noted during d/c to home.
[2018-09-17 05:38] VITALS: BP 122/81
== END 2018-09-17 05:39 | disposition home or self-care (01) ==
LOC: EMR 03:58
DX: N39.0 Urinary tract infection, site not specified (principal)
CPT/HCPCS: 81003; 81025; 87086; 96372; 99283

== ENCOUNTER 2019-01-25 01:08 | Emergency (ER) | payer OTHER ==
[~2019-01-25] VITALS: Ht 154.9 cm; Wt 63.5 kg
[~2019-01-25 01:08] MED LIST changes: +HYDROCODON-ACE1 EA15 ORAL; +LEVOFLOXACIN500 MG ORAL
[2019-01-25 01:48] VITALS: BP 118/70
--- NOTE | 2019-01-25 01:50 | NUR ---
ED Nurse Note: pt walked in c/o low back pain x2days, pt denies any recent injuries but states she thinks it might be her kidney, pt states she has pain and discomfort when urinating. pt ambulates w/ steady gait, vss, will cont monitor.
[2019-01-25] MEDS ORDERED: Ketorolac 60mg Inj IM ONE (02:15)
--- NOTE | 2019-01-25 02:20 | NUR ---
ED Nurse Note: urine specimen sent to lab.
[2019-01-25 02:32] LABS: APPEARANCE,URINE SLIGHTLY CLOUDY; BILIRUBIN, URINE NEGATIVE (NEGATIVE); COLOR,URINE PALE YELLOW; GLUCOSE, URINE (UA) NEGATIVE (NEGATIVE); KETONES,URINE NEGATIVE (NEGATIVE); LEUKOCYTE ESTERASE ,URINE 2+ (NEGATIVE); NITRITE,URINE NEGATIVE (NEGATIVE); PH,URINE 6.5 (4.5-8.0); PROTEIN,URINE 1+ (NEGATIVE); UROBILINOGEN,URINE 1 MG/DL (0.0-1.0)
--- NOTE | 2019-01-25 02:43 | NUR ---
ED Nurse Note: pt reports pain is better with medication, will cont monitor, pt advised to notify staff if needed assist.
[2019-01-25] MEDS ORDERED: Cephalexin 500mg cap ONE (02:57)
[2019-01-25] MEDS ORDERED: Cephalexin 500mg cap ORAL ONE (03:00)
--- NOTE | 2019-01-25 03:01 | Emergency Room Report ---
History of Present Illness General Chief Complaint: Lower Back Pain or Injury Source: Patient, Medical Record Present Illness HPI This is a 23-year-old female with no past medical history. She presents with chief complaint of lower back pain. Onset for 2 days. No trauma. No fever chills but no nausea no vomiting. No incontinence of bowel or urine. Worse with certain movement. She also has some suprapubic tenderness. Does have increasing urination. History of UTI in the past. No upper back pain or vomiting. No fever. Allergies: Coded Allergies: No Known Allergies (Unverified , 01/25/19) Patient History Past Medical History: see triage record, old chart reviewed Past Surgical History: none Pertinent Family History: none Social History: Denies: smoking Last Menstrual Period: 12-30-2018 Now: No Immunizations: other Reviewed Nursing Documentation: PMH: Agreed; PSxH: Agreed Review of Systems Eye: Denies: eye pain, blurred vision ENT: Denies: ear pain, nose congestion, throat swelling Respiratory: Denies: cough, shortness of breath Cardiovascular: Denies: chest pain, palpitations Gastrointestinal: Denies: abdominal pain, diarrhea, nausea, vomiting Musculoskeletal: Reports: back pain; Denies: joint pain Skin: Denies: rash Neurological: Denies: headache, numbness Endocrine: Denies: increased thirst, increased urine Hematologic/Lymphatic: Denies: easy bruising All Other Systems: negative except mentioned in HPI Physical Exam Vital Signs Date Time Temp Pulse Resp B/P (MAP) Pulse Ox O2 Delivery O2 Flow Rate FiO2 01/25/19 01:32 98.1 78 18 113/73 (86) 98 Room Air vitals normal Sp02 EP Interpretation: reviewed, normal General Appearance: well appearing, no apparent distress, alert Head: normocephalic, atraumatic Eyes: bilateral eye PERRL, bilateral eye EOMI ENT: hearing grossly normal, normal pharynx Neck: full range of motion, supple, no meningismus Respiratory: chest non-tender, lungs clear, normal breath sounds Cardiovascular #1: regular rate, rhythm, no murmur Gastrointestinal: normal bowel sounds, non tender, no mass, no organomegaly, no bruit, non-distended Musculoskeletal: back normal, gait/station normal, normal range of motion Psychiatric: mood/affect normal Skin: warm/dry Medical Decision Making Diagnostic Impression: Primary Impression: Low back pain Qualified Codes: M54.5 - Low back pain Additional Impression: UTI (urinary tract infection) Qualified Codes: N30.00 - Acute cystitis without hematuria ER Course Patient with lower back pain. No evidence of cauda equina syndrome, spinal epidural abscess or neoplastic process. Will treat for UTI also. Last Vital Signs Date Time Temp Pulse Resp B/P (MAP) Pulse Ox O2 Delivery O2 Flow Rate FiO2 01/25/19 01:48 98.1 74 18 118/70 98 Room Air Status: improved Disposition: HOME, SELF-CARE Condition: Stable Scripts Ibuprofen* (MOTRIN*) 600 Mg Tablet 600 MG ORAL THREE TIMES A DAY, #30 TAB 0 Refills Prov: Favio Anaya MD 01/25/19 Cephalexin* (KEFLEX*) 500 Mg Capsule 500 MG ORAL TID, #21 CAP Prov: Favio Anaya MD 01/25/19 Hydrocodone/Acetaminophen 5-325* (HYDROCODONE/ACETAMINOPHEN 5-325*) 1 Each Tablet 1 TAB ORAL Q6H PRN for For Pain, #10 TAB 0 Refills Prov: Favio Anaya MD 01/25/19 Patient Instructions: Back Pain, Adult Additional Instructions: Follow-up with your doctor in 7 days. Return if symptoms worsen. Favio Anaya MD Jan 25, 2019 03:01
[2019-01-25] MEDS ORDERED: IBUPROFEN600 MG ORAL (03:07)
[2019-01-25] MEDS ORDERED: HYDROCODON-ACE1 EA15 ORAL (03:07)
[2019-01-25] MEDS ORDERED: CEPHALEXIN500 MG ORAL (03:07)
--- NOTE | 2019-01-25 03:14 | NUR ---
ED Nurse Note: pt cleared to be d/c per ERMD, pt discharge and aftercare instruction provided w/ prescription, pt education done via discussion and handout, pt advised to follow up with pcp or return to ed if changes in condition, pt verbalized understanding and agrees with plan, vss, ambulatory w/ steady gait, left w/ all belongings.
[2019-01-25 03:15] VITALS: BP 121/76
== END 2019-01-25 03:14 | disposition home or self-care (01) ==
LOC: EMR 02:00
DX: M54.5 Low back pain (principal); N30.00 Acute cystitis without hematuria
CPT/HCPCS: 81003; 81025; 87086; 87181; 96372; 99283

== ENCOUNTER 2019-08-01 19:52 | Emergency (ER) | payer OTHER ==
[~2019-08-01] VITALS: Ht 152.4 cm; Wt 61.2 kg
[2019-08-01] MEDS ORDERED: Acetaminophen 500mg (ES) tab ORAL ONE (20:15)
[2019-08-01 20:29] VITALS: BP 113/71
[2019-08-01 20:30] LABS: APPEARANCE,URINE SLIGHTLY CLOUDY; BILIRUBIN, URINE NEGATIVE (NEGATIVE); COLOR,URINE PALE YELLOW; GLUCOSE, URINE (UA) NEGATIVE (NEGATIVE); KETONES,URINE 1+ (NEGATIVE); LEUKOCYTE ESTERASE ,URINE 1+ (NEGATIVE); NITRITE,URINE NEGATIVE (NEGATIVE); PH,URINE 6 (4.5-8.0); PROTEIN,URINE NEGATIVE (NEGATIVE); UROBILINOGEN,URINE 1 MG/DL (0.0-1.0)
[2019-08-01] MEDS ORDERED: PHENAZOPYRIDIN100 MG ORAL (21:30)
[2019-08-01] MEDS ORDERED: TYLENOL EXTRA500 MG ORAL (21:30)
[2019-08-01] MEDS ORDERED: CEPHALEXIN500 MG ORAL (21:30)
[2019-08-01 21:45] VITALS: BP 113/71
--- NOTE | 2019-08-01 22:22 | Emergency Room Report ---
History of Present Illness General Chief Complaint: Abdominal Pain Source: Patient Present Illness HPI 24-year-old female presents ED for evaluation. Complaining of lower abdominal pain. Started earlier today. Cramping, 6 out of 10, radiating to the back. Notes some dysuria. Denies flank pain. Denies fevers or chills. Denies vaginal bleeding or discharge. No other aggravating relieving factors. Denies any other associated symptoms Allergies: Coded Allergies: No Known Allergies (Unverified , 01/25/19) Patient History Past Medical History: none Past Surgical History: none Pertinent Family History: none Social History: Denies: smoking, alcohol use, drug use Now: No Immunizations: UTD Reviewed Nursing Documentation: PMH: Agreed; PSxH: Agreed Nursing Documentation-PMH Past Medical History: No Stated History Review of Systems All Other Systems: negative except mentioned in HPI Physical Exam Vital Signs Date Time Temp Pulse Resp B/P (MAP) Pulse Ox O2 Delivery O2 Flow Rate FiO2 08/01/19 19:54 98.6 81 18 113/71 (85) 99 Room Air Sp02 EP Interpretation: reviewed, normal General Appearance: no apparent distress, alert, GCS 15, non-toxic Head: normocephalic, atraumatic Eyes: bilateral eye normal inspection, bilateral eye PERRL ENT: hearing grossly normal, normal pharynx, no angioedema, normal voice Neck: full range of motion, supple/symm/no masses Respiratory: chest non-tender, lungs clear, normal breath sounds, speaking full sentences Cardiovascular #1: regular rate, rhythm, no edema Cardiovascular #2: 2+ carotid (R), 2+ carotid (L), 2+ radial (R), 2+ radial (L) , 2+ dorsalis pedis (R), 2+ dorsalis pedis (L) Gastrointestinal: normal bowel sounds, soft, non-distended, no guarding, no rebound, tenderness - suprapubic Rectal: deferred Genitourinary: normal inspection, no CVA tenderness Musculoskeletal: back normal, normal range of motion, gait/station normal, non- tender Neurologic: alert, motor strength/tone normal, oriented x3, sensory intact, responsive, speech normal Psychiatric: judgement/insight normal, memory normal, mood/affect normal, no suicidal/homicidal ideation Reflexes: 3+ bicep (R), 3+ bicep (L), 3+ tricep (R), 3+ tricep (L), 3+ knee (R) , 3+ knee (L) Lymphatic: no adenopathy Medical Decision Making Diagnostic Impression: Primary Impression: UTI ER Course Hospital Course 24-year-old female presents to ED complaining of dysuria with suprapubic pain. Differential diagnoses include: UTI, cystitis, ovarian cyst Clinical course Patient placed on stretcher. After initial history and physical I ordered UA, urine , pain meds, US. UA + bacteria, negative Pelvic US - unremarkable I discussed findings with the patient. Will discharge to home with antibiotics , Pyridium. Safe for discharge close outpatient follow-up. Does not have a PMD. I will provide referrals Diagnosis - UTI Stable and discharged home with prescriptions for Rx keflex, pyridium. Instructed to followup with PMD. Return to ED if symptoms recur or worsen Labs Test 08/01/19 20:00 Urine Color Pale yellow Urine Appearance Slightly cloudy Urine pH 6 (4.5-8.0) Urine Specific [place] 1.025 (1.005-1.035) Urine Protein Negative (NEGATIVE) Urine Glucose (UA) Negative (NEGATIVE) Urine Ketones 1+ (NEGATIVE) Urine Blood Negative (NEGATIVE) Urine Nitrite Negative (NEGATIVE) Urine Bilirubin Negative (NEGATIVE) Urine Urobilinogen 1 MG/DL (0.0-1.0) Urine Leukocyte Esterase 1+ (NEGATIVE) Urine RBC 0-2 /HPF (0 - 2) Urine WBC 10-15 /HPF (0 - 2) Urine Squamous Epithelial Cells Many /LPF (NONE/OCC) Urine Bacteria Few /HPF (NONE) CT/MRI/US Diagnostic Results CT/MRI/US Diagnostic Results : Imaging Test Ordered: Pelvic US Last Vital Signs Date Time Temp Pulse Resp B/P (MAP) Pulse Ox O2 Delivery O2 Flow Rate FiO2 08/01/19 21:45 98.6 81 18 113/71 99 Room Air Status: improved Disposition: HOME, SELF-CARE Condition: Stable Scripts Phenazopyridine Hcl* (PYRIDIUM*) 100 Mg Tablet 100 MG ORAL THREE TIMES A DAY for 3 Days, #9 TAB Prov: Dre Marvin MD 08/01/19 Cephalexin* (KEFLEX*) 500 Mg Capsule 500 MG ORAL EVERY 6 HOURS for 7 Days, #28 CAP Prov: Dre Marvin MD 08/01/19 Acetaminophen* (TYLENOL EXTRA STRENGTH*) 500 Mg Tablet 500 MG ORAL Q8H PRN for Prn Headache/Temp > 101, #30 TAB 0 Refills Prov: Dre Marvin MD 08/01/19 Referrals: [facility] Patient Instructions: Dysuria Dre Marvin MD Aug 01, 2019 22:22
== END 2019-08-01 21:45 | disposition home or self-care (01) ==
LOC: EMR 20:08
DX: N39.0 Urinary tract infection, site not specified (principal)
CPT/HCPCS: 76830; 76856; 81003; 87086; Z7502; 99284

== ENCOUNTER 2020-02-15 19:15 | Emergency (ER) | payer OTHER ==
[~2020-02-15] VITALS: Ht 149.9 cm; Wt 65.8 kg
[2020-02-15 19:20] VITALS: BP 116/80
--- NOTE | 2020-02-15 19:20 | NUR ---
ED Nurse Note: Pt walked into ED from home for c/o lower back pain with urinary frequency and painful urination x 1 week. Pt denies fever, cough, SOB or chills. Pt is aaox4, breathing is normal and unlabored and ambulatory with steady gait.
[2020-02-15 19:31] LABS: APPEARANCE,URINE SLIGHTLY CLOUDY; BILIRUBIN, URINE NEGATIVE (NEGATIVE); COLOR,URINE PALE YELLOW; GLUCOSE, URINE (UA) NEGATIVE (NEGATIVE); KETONES,URINE NEGATIVE (NEGATIVE); LEUKOCYTE ESTERASE ,URINE 1+ (NEGATIVE); NITRITE,URINE NEGATIVE (NEGATIVE); PH,URINE 7 (4.5-8.0); PROTEIN,URINE 1+ (NEGATIVE); UROBILINOGEN,URINE 1 MG/DL (0.0-1.0)
--- NOTE | 2020-02-15 20:00 | Emergency Room Report ---
History of Present Illness General Chief Complaint: Female Urogenital Problems Source: Patient Present Illness HPI 24-year-old female with history of recurrent UTI here complaining of 1 week of urinary frequency and urgency as well as dysuria and lower back pain. Reports that started this morning she started feeling little bit of pain on the left flank however no tenderness noted in that area. Denies any fever and chills, nausea vomiting, abnormal vaginal discharge. Reports that she is sexually active with the same partner. Patient has been to [facility] multiple times for lower back pain associated with UTI. Rates the pain 5 out of 10 without radiation. Patient took ibuprofen before coming in. Does not know her status. Patient has not had any control methods. Denies chest pain, shortness of breath, headache and dizziness. Vital signs are within normal limits. 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/20 COVID-19 Screening: Negative COVID-19 COVID-19 Testing Source: clinic Patient History Past Medical History: see triage record Past Surgical History: none Pertinent Family History: none Last Menstrual Period: january 14 2020 Now: No Immunizations: UTD Reviewed Nursing Documentation: PMH: Agreed; PSxH: Agreed Nursing Documentation-PMH Past Medical History: No Stated History Review of Systems All Other Systems: negative except mentioned in HPI Physical Exam Vital Signs Date Time Temp Pulse Resp B/P (MAP) Pulse Ox O2 Delivery O2 Flow Rate FiO2 02/15/20 19:18 98.4 82 18 116/80 (92) 99 Room Air Sp02 EP Interpretation: reviewed, normal General Appearance: no apparent distress, alert, GCS 15, non-toxic Head: normocephalic, atraumatic Eyes: bilateral eye normal inspection, bilateral eye PERRL ENT: hearing grossly normal, normal pharynx, no angioedema, normal voice Neck: full range of motion, supple/symm/no masses Respiratory: chest non-tender, lungs clear, normal breath sounds, speaking full sentences Cardiovascular #1: regular rate, rhythm, no edema, no murmur Gastrointestinal: normal bowel sounds, non tender, soft, non-distended, no guarding, no rebound Genitourinary: no CVA tenderness Musculoskeletal: back normal, pelvis stable, non-tender Neurologic: alert, motor strength/tone normal, oriented x3, sensory intact, responsive, speech normal Psychiatric: judgement/insight normal, memory normal, mood/affect normal, no suicidal/homicidal ideation Skin: no rash Lymphatic: no adenopathy Medical Decision Making PA Attestation All diagnoses and treatment plans were reviewed and discussed with my supervising physician Dr. Cummins Diagnostic Impression: Primary Impression: UTI Additional Impression: Low back pain ER Course 24-year-old female with history of recurrent UTI here complaining of 1 week of urinary frequency and urgency as well as dysuria and lower back pain. Reports that started this morning she started feeling little bit of pain on the left flank however no tenderness noted in that area. Denies any fever and chills, nausea vomiting, abnormal vaginal discharge. Reports that she is sexually active with the same partner. Patient has been to [place] [facility] multiple times for lower back pain associated with UTI. Rates the pain 5 out of 10 without radiation. Patient took ibuprofen before coming in. Does not know her status. Patient has not had any control methods. Denies chest pain, shortness of breath, headache and dizziness. Vital signs are within normal limits. Ddx considered but are not limited to: UTI, pyelonephritis, urinary incontinence , prolapsed bladder Vital signs: are WNL, pt. is afebrile H&PE are most consistent with: UTI, low back pain ORDERS: UA, urine cx, urine test, CBC, CMP, Macrobid, Pyridium, Motrin , lidocaine patch ED INTERVENTIONS: Tylenol DISCHARGE: At this time pt. is stable for d/c to home. Will provide printed patient care instructions, and any necessary prescriptions. Care plan and follow up instructions have been discussed with the patient prior to discharge. Take medication as directed, follow-up with your primary care provider, increase oral hydration, worsening symptom return to the emergency room Last Vital Signs Date Time Temp Pulse Resp B/P (MAP) Pulse Ox O2 Delivery O2 Flow Rate FiO2 02/15/20 19:20 98.4 82 18 116/80 99 Room Air Disposition: HOME, SELF-CARE Condition: Stable Referrals: NOT CHOSEN [facility],REFERRING (PCP) Patient Instructions: Back Pain, Adult, [id number], Urinary Tract Infection Additional Instructions: Take medication as directed, follow-up with your primary care provider, increase oral hydration, worsening symptom return to the emergency room Noemy Noland Feb 15, 2020 20:00
[2020-02-15 20:16] LABS: BASOPHILS % (AUTO) 1.1 % (0.0-2.0); HEMATOCRIT 42.4 % (37.0-47.0); HEMOGLOBIN 13.5 G/DL (12.0-16.0); LYMPHOCYTES % (AUTO) 43.1 % (20.0-45.0); MEAN CORPUSCULAR VOLUME 93 FL (80-99); MONOCYTES % (AUTO) 3.8 % (1.0-10.0); NEUTROPHILS % (AUTO) 50.9 % (45.0-75.0); PLATELET COUNT 241 K/UL (150-450); RED BLOOD COUNT 4.57 M/UL (4.20-5.40); RED CELL DISTRIBUTION WIDTH 12.8 % (11.6-14.8); WHITE BLOOD COUNT 8.6 K/UL (4.8-10.8)
[2020-02-15] MEDS ORDERED: LIDODERM700 M1 TOPIC (20:20)
[2020-02-15] MEDS ORDERED: PHENAZOPYRIDIN200 MG ORAL (20:20)
[2020-02-15] MEDS ORDERED: IBUPROFEN600 M1 ORAL (20:20)
[2020-02-15] MEDS ORDERED: NITROFURANTOIN100 M2 ORAL (20:20)
[2020-02-15 20:27] LABS: ANION GAP 12 mmol/L (5-15); BLOOD UREA NITROGEN 13 mg/dL (7-18); CALCIUM 9.1 MG/DL (8.5-10.1); CARBON DIOXIDE 24 MMOL/L (21-32); CHLORIDE 105 MMOL/L (98-107); CREATININE 0.9 MG/DL (0.55-1.30); POTASSIUM 3.8 MMOL/L (3.5-5.1); SODIUM 141 MMOL/L (136-145)
[2020-02-15 20:34] LABS: ALANINE AMINOTRANSFERASE 23 U/L (12-78); ALBUMIN 4.1 G/DL (3.4-5.0); ALBUMIN/GLOBULIN RATIO 0.9 (1.0-2.7); ALKALINE PHOSPHATASE 77 U/L (46-116); ASPARTATE AMINO TRANSFERASE 21 U/L (15-37); BILIRUBIN,TOTAL 0.2 MG/DL (0.2-1.0)
[2020-02-15 20:45] VITALS: BP 115/75
--- NOTE | 2020-02-15 20:45 | NUR ---
ER DISCHARGE NOTE: Patient is cleared to be discharged per ERMD, pt is aox4, on room air, with stable vital signs. pt was given dc and prescription instructions, pt was able to verbalize understanding, pt id band removed. pt is able to ambulate with steady gait. pt took all belongings.
== END 2020-02-15 20:45 | disposition home or self-care (01) ==
LOC: EMR 19:38
DX: N39.0 Urinary tract infection, site not specified (principal); M54.5 Low back pain
CPT/HCPCS: 36415; 80053; 81003; 81025; 85025; 87086; Z7502; 99283

== ENCOUNTER 2020-05-21 18:18 | Emergency (ER) | payer OTHER ==
[~2020-05-21] VITALS: Ht 149.9 cm; Wt 66.2 kg
[~2020-05-21 18:18] MED LIST changes: +IBUPROFEN600 M1 ORAL; +LIDODERM700 M1 TOPIC; +PHENAZOPYRIDIN200 MG ORAL
[2020-05-21 18:26] VITALS: BP 125/81
--- NOTE | 2020-05-21 18:36 | NUR ---
ED Nurse Note: Patient from home and walked in due to lower back and lower abd pain started today. States difficulty in urinating. No reports of burning sensation or fever/chills. AAO x4, ambulatory.
--- NOTE | 2020-05-21 18:41 | NUR ---
ED Nurse Note: Collected urine then sent.
--- NOTE | 2020-05-21 18:56 | NUR ---
HAND-OFF: Report given to Urszula LALA.
--- NOTE | 2020-05-21 19:00 | NUR ---
ED Nurse Note: Report received from SPIKE Inman.
[2020-05-21 19:04] LABS: APPEARANCE,URINE CLOUDY; BILIRUBIN, URINE NEGATIVE (NEGATIVE); COLOR,URINE PALE YELLOW; GLUCOSE, URINE (UA) NEGATIVE (NEGATIVE); KETONES,URINE NEGATIVE (NEGATIVE); LEUKOCYTE ESTERASE ,URINE 3+ (NEGATIVE); NITRITE,URINE POSITIVE (NEGATIVE); PH,URINE 6.5 (4.5-8.0); PROTEIN,URINE 2+ (NEGATIVE); UROBILINOGEN,URINE NORMAL MG/DL (0.0-1.0)
--- NOTE | 2020-05-21 19:11 | Emergency Room Report ---
History of Present Illness General Chief Complaint: Back Pain-No Injury Source: Patient Present Illness HPI 25-year-old female with no known significant past medical history here complaining of 2 days of dysuria urinary frequency 1 day of left flank pain without any radiation. Denies any hematuria, vaginal discharge. Reports her last menstrual period was a month ago and regular. Reports that she was last s exually active 2 weeks ago and does not want to get treated for potential sexually transmitted diseases. Denies fever and chills, nausea vomiting, shortness of breath, chest pain, headache or dizziness. Has not taken medication for symptom relief. Vital signs are within normal limits. Denies tobacco smoke, drug use, alcohol intake. Allergies: Coded Allergies: No Known Allergies (Unverified , 01/25/19) COVID-19 Screening Contact w/high risk pt: No Recent Travel to affected area: No Experienced COVID-19 symptoms?: No COVID-19 Testing performed EDITOR MAP: Yes - 2 weeks ago COVID-19 Screening: Negative COVID-19 COVID-19 Testing Source: [facility] Patient History Past Medical History: see triage record Past Surgical History: none Pertinent Family History: none Last Menstrual Period: 04/27/20 Now: No Immunizations: UTD Reviewed Nursing Documentation: PMH: Agreed; PSxH: Agreed Review of Systems All Other Systems: negative except mentioned in HPI Physical Exam Vital Signs Date Time Temp Pulse Resp B/P (MAP) Pulse Ox O2 Delivery O2 Flow Rate FiO2 05/21/20 18:26 98.1 75 19 125/81 (96) 100 Room Air Sp02 EP Interpretation: reviewed, normal General Appearance: no apparent distress, alert, GCS 15, non-toxic Head: normocephalic, atraumatic Eyes: bilateral eye normal inspection, bilateral eye PERRL ENT: hearing grossly normal, normal pharynx, no angioedema, normal voice Neck: full range of motion, supple/symm/no masses Respiratory: chest non-tender, lungs clear, normal breath sounds, speaking full sentences Cardiovascular #1: regular rate, rhythm, no edema Gastrointestinal: normal bowel sounds, non tender, soft, no mass, no organomegaly, no peritonitis, non-distended, no guarding, no rebound Genitourinary: no CVA tenderness Musculoskeletal: back normal Neurologic: alert, motor strength/tone normal, oriented x3, sensory intact, responsive, speech normal Psychiatric: judgement/insight normal, memory normal, mood/affect normal, no suicidal/homicidal ideation Skin: no rash Lymphatic: no adenopathy Medical Decision Making PA Attestation All diagnoses and treatment plans were reviewed and discussed with my supervising physician Dr. Mitchell Diagnostic Impression: Primary Impression: UTI ER Course 25-year-old female with no known significant past medical history here complaining of 2 days of dysuria urinary frequency 1 day of left flank pain without any radiation. Denies any hematuria, vaginal discharge. Reports her last menstrual period was a month ago and regular. Reports that she was last sexually active 2 weeks ago and does not want to get treated for potential sexually transmitted diseases. Denies fever and chills, nausea vomiting, shortness of breath, chest pain, headache or dizziness. Has not taken medication for symptom relief. Vital signs are within normal limits. Denies tobacco smoke, drug use, alcohol intake. Ddx considered but are not limited to: UTI, pylonephritis, urinary incontinence, prolapsed bladder Vital signs: are WNL, pt. is afebrile H&PE are most consistent with: ORDERS: UA, urine cx, urine test, Keflex, Pyridium ED INTERVENTIONS: None required at this time. DISCHARGE: At this time pt. is stable for d/c to home. Will provide printed patient care instructions, and any necessary prescriptions. Care plan and follow up instructions have been discussed with the patient prior to discharge. At this time no further evaluation needed as patient not tender to palpation and is afebrile. Advised patient to take medications if any worsening symptom return to the emergency room. Last Vital Signs Date Time Temp Pulse Resp B/P (MAP) Pulse Ox O2 Delivery O2 Flow Rate FiO2 05/21/20 18:26 98.1 75 19 125/81 100 Room Air Disposition: HOME, SELF-CARE Condition: Stable Scripts Cephalexin* (KEFLEX*) 500 Mg Capsule 500 MG ORAL EVERY 12 HOURS for 7 Days, #14 CAP 0 Refills Prov: Noemy Noland 05/21/20 Phenazopyridine Hcl* (PYRIDIUM*) 200 Mg Tablet 200 MG ORAL THREE TIMES A DAY for 2 Days, #6 TAB 0 Refills Prov: Noemy Noland 05/21/20 Referrals: [facility],REFERRING (PCP) Patient Instructions: Urinary Tract Infection, [id number] Additional Instructions: Take medication as directed, follow-up with your primary care provider, increase oral hydration, worsening symptoms return to the emergency room Noemy Noland May 21, 2020 19:11
[2020-05-21] MEDS ORDERED: PHENAZOPYRIDIN200 MG ORAL (19:13)
[2020-05-21] MEDS ORDERED: CEPHALEXIN500 MG ORAL (19:13)
[2020-05-21 19:15] VITALS: BP 123/80
== END 2020-05-21 19:15 | disposition home or self-care (01) ==
LOC: EMR 18:53
DX: N39.0 Urinary tract infection, site not specified (principal)
CPT/HCPCS: 81003; 81025; 87086; 87181; Z7502; 99283